=== PATIENT | male | born 1955 | race Caucasian/White ===

== ENCOUNTER → 2020-04-06 10:59 | Outpatient (CLI) | payer BC, SELFPAY ==
--- NOTE | 2020-04-06 11:06 | RAD_ITS ---
STUDY: X-RAY - ABDOMEN/PELVIS REASON FOR EXAM: Male, 65 years old. Abdominal pain TECHNIQUE: Single AP view of the abdomen / pelvis. COMPARISON: None. FINDINGS: Normal visualized lung bases. There is an unremarkable bowel gas pattern. The visualized liver, spleen and kidneys are grossly normal in size and morphology. Normal soft tissue structures. Normal visualized osseous structures. RAD/Abdomen Single View IMPRESSION: Normal x-ray examination of the abdomen and pelvis. Electronically Signed: Dipesh Thomas MD at 17:19 EST Tel , Service support ,
== END ==
PROVIDERS: PCP Family Medicine; Visit Provider Urology
DX: N20.1 Calculus of ureter (principal)
CPT/HCPCS: 74018

== ENCOUNTER 2020-04-09 12:29 | Day surgery (SDC) | payer BC, SELFPAY ==
[2020-04-09 13:03] VITALS: BP 144/91; PULSE 57; RESP 16; TEMP 36.6; O2SAT 97; BMI 27.3
[2020-04-09] MEDS: Lactated Ringers 1,000 ML 100 ML IV ×2 (13:24→16:00)
--- NOTE | 2020-04-09 14:04 | PCM.HP.STD ---
Problem List (1) Calculus of proximal left ureter Status: Acute History of Present Illness Date of Admission: 04/09/20 Chief Complaint: Left proximal ureteral calculi The patient is a 65 year old male who I saw in the office who had a kidney stone in the proximal left ureter KUB confirms a stone today working to proceed with left extracorporeal shockwave lithotripsy and possibly place a stent if necessary. Past Medical History Allergies No Known Allergies Allergy (Verified 04/07/20 10:41) Home Medications: Ambulatory Orders Medication Instructions Recorded Ibuprofen [Advil] 600 mg PO DAILY PRN PRN 09/16/14 Multivitamins,Therapeutic 1 tablet PO DAILY 09/16/14 [Multivitamin] Docusate Sodium [Colace] 100 mg PO BID PRN PRN #10 capsule 11/24/14 Hydrocodone/Acetaminophen 1 ea PO PRN PRN 04/07/20 [Hydrocodon-Acetaminophen 5-325] Methotrexate [Xatmep] 25 mg PO .QWEEK 04/07/20 Pantoprazole Sodium [Protonix] 40 mg PO DAILY 04/07/20 Flomax 0.4 g PO DAILY 04/09/20 Surgical History: - - Partial colectomy, hernia repair with mesh to the mid abdomen Smoking Status: Former smoker Tobacco Use: Non-smoker Review of Systems Constitutional: Denies: Chills, Fever, Weight Change HEENT: Denies: Head Aches, Sinus Congestion, Sinus Drainage Cardiovascular: Denies: Chest Pain, Palpitations Respiratory: Denies: Cough, Shortness of breath at rest, Sputum production Gastrointestinal: Denies: Abdominal Pain, Nausea, Vomiting Genitourinary: Denies: Dysuria Musculoskeletal: Denies: Joint Pain, Joint Tenderness Skin: Denies: Rash, Wounds Neurological: Denies: Numbness, Tingling, Focal weakness Psychiatric: Denies: Anxiety, Depression, Homicidal Ideations, Suicidal Ideations Hematologic/ Lymphatic: Denies: Easy Bruising, Easy Bleeding VTE Information - Inpt Only VTE Present on Admission: No VTE Mechan Device Prophylaxis: SCD's - Physical Exam Vitals/I&O's: Vital Signs Temp Pulse Resp BP Pulse Ox 98 F 57 L 16 144/91 H 97 04/09/20 13:03 04/09/20 13:03 04/09/20 13:03 04/09/20 13:03 04/09/20 13:03 Oxygen Delivery Method Room Air Weight: 81.6 kg Body Mass Index (BMI) 27.3 General: Alert, Oriented x3, Cooperative HEENT: Atraumatic, PERRLA, EOMI, Normocephalic Neck: Supple, No JVD, Negative Carotid Bruits Lungs: Clear to auscultation, Normal air movement Cardiovascular: Regular rate, No murmurs Abdomen: Bowel Sounds Present, Soft, Non Tender Extremities: No edema, Capillary Refill Less than 3 Seconds Skin: No rashes, No breakdown Musculoskeletal: No Tenderness to Palpation of Joints or Extremities Neurological: Cranial nerves II-XII grossly intact Psych/Mental Status: Normal Affect, Appropriate Microbiology Past 72 Hours 04/08/20 14:00 Interface Orders SARS-CoV-2 Antigen (Rapid) - Final Current Medications Cefazolin Sodium 2 gm/ Sodium (Chloride) 110 mls @ 150 mls/hr IV PREOP ONE Stop: 04/09/20 16:58 Lactated Ringer's () 1,000 mls @ 100 mls/hr IV .Q10H TIFFANIE Last Admin: 04/09/20 13:24 Dose: 100 mls/hr Documented by: Assessment/Plan All Active Problems Calculus of proximal left ureter (Acute) 65-year-old male with a proximal left obstructing kidney stone plan to proceed with shockwave lithotripsy and possible stent on the left
--- NOTE | 2020-04-09 14:09 | DCINST_ITS ---
Discharge Diet: Light diet - advance as tolerated Discharge Activity: May not drive while taking narcotic pain medications. Suture Line Care: Avoid Pulling/Pushing, Avoid Pinching/Bending Instructions: Shock Wave Lithotripsy Allergies/Adverse Reactions: Allergies No Known Allergies Allergy (Verified 04/07/20 10:41) Medications to take at Discharge Ibuprofen [Advil] 600 mg PO DAILY PRN PRN 09/16/14 Multivitamins,Therapeutic [Multivitamin] 1 tablet PO DAILY 09/16/14 Docusate Sodium [Colace] 100 mg PO BID PRN PRN #10 capsule 11/24/14 Hydrocodone/Acetaminophen [Hydrocodon-Acetaminophen 5-325] 1 ea PO PRN PRN 04/07/20 Methotrexate [Xatmep] 25 mg PO .QWEEK 04/07/20 Pantoprazole Sodium [Protonix] 40 mg PO DAILY 04/07/20 Flomax 0.4 g PO DAILY 04/09/20 Primary Care Physician: Minh Francisco MD [Primary Care Provider] - Test Results: Test results from this visit will be discussed in further detail at your follow- up appointment, if applicable. Please Follow Up With: Damien Faria MD - [phone] When: in 2 weeks, please call to make an appointment.
[2020-04-09] MEDS: Cefazolin 2 GM in 0.9% Normal Saline 100 ML IV (14:52)
[2020-04-09 15:58] VITALS: BP 117/86; BP 144/91; PULSE 62; RESP 18; TEMP 35.9; O2SAT 95
[2020-04-09 16:00] VITALS: BP 122/74; BP 144/91; PULSE 58; RESP 18; O2SAT 95
[2020-04-09 16:15] VITALS: BP 112/78; BP 144/91; PULSE 59; RESP 18; TEMP 36.1; O2SAT 97
[2020-04-09 17:34] VITALS: BP 144/91; BP 158/90; PULSE 53; RESP 16; TEMP 35.9; O2SAT 98
--- NOTE | 2020-04-12 12:03 | PCM.OPRPT ---
Problem List (1) Calculus of proximal left ureter Status: Acute Report of Operation Date of Procedure: 04/09/20 Pre-Operative Diagnosis: left kidney stone in the ureter Post-Operative Diagnosis: same Surgery/Procedure Performed:: cystoscopy left stent placement and left extra for shockwave lithotripsy Description of Surgical Findings:: 65-year-old male presents to the hospital for treatment of a kidney stone, he underwent general anesthesia, we started off by treating the stone with shockwave lithotripsy. We majored stone was in the upper focal point of the lithotripter. During the treatment we monitor the stone fragmentation. When we were treating the stone then not breaking so decision was made a place a stent. He was placed in dorsal lithotomy positionin the penis and tussles are prepped and draped unusual store fashion, went to the bladder the 21 British rigid cysto with the scope, advanced a wire up the left ureter and over the wire I that the stent, six British by 26cm stent. Once stent was in good positionI pulled the wire and the stent: the kidney bladder good position. We then reposition the patient and continue treatment at the end of the 3000 shockwaves the stone in the appearing to break much better patient and aesthetic was reversed plan to see him next week with a KUB and stent removal. Type of Anesthesia:: General Drains: stent left side - Admit VTE Documentation VTE Present on Admission: No
== END 2020-04-09 17:39 | disposition home or self-care (01) ==
LOC: SDC 12:29 → AC 12:39
PROVIDERS: PCP Family Medicine; Referring Provider Urology; Visit Provider Urology
PROC: (CPT 50590; principal; 2020-04-09 14:55)
DX: M06.9 Rheumatoid arthritis, unspecified (principal); E78.00 Pure hypercholesterolemia, unspecified; K21.9 Gastro-esophageal reflux disease without esophagitis; Z79.1 Long term (current) use of non-steroidal anti-inflammatories (NSAID); Z79.899 Other long term (current) drug therapy; Z96.652 Presence of left artificial knee joint; Z87.891 Personal history of nicotine dependence
CPT/HCPCS: 00873; 50590; 52332; 87426; C9803; J7120; C1769; J2405

== ENCOUNTER → 2020-04-12 12:35 | Outpatient (CLI) | payer BC, SELFPAY ==
[2020-04-09 13:03] VITALS: BMI 27.3
--- NOTE | 2020-04-12 12:37 | RAD_ITS ---
STUDY: X-RAY - ABDOMEN/PELVIS REASON FOR EXAM: Male, 65 years old. LEFT SIDE KIDNEY STONE TECHNIQUE: Two AP supine views of the abdomen and pelvis. COMPARISON: None. FINDINGS: Normal visualized lung bases. Left ureteral stent in place showing normal orientation. There is an unremarkable bowel gas pattern. There is no demonstrated free abdominal air. The visualized liver, spleen and kidneys are grossly normal in size and morphology. Normal soft tissue structures. Normal visualized osseous structures. There is an overlying nephrolith of the left lower kidney pelvis. RAD/Abdomen Single View IMPRESSION: Left renal nephrolith with left ureteral stent in place. Electronically Signed: Janusz Wright DO at 23:20 EST , Service support ,
== END ==
PROVIDERS: PCP Family Medicine; Referring Provider Urology; Visit Provider Urology
DX: N20.0 Calculus of kidney (principal)
CPT/HCPCS: 74018

== ENCOUNTER → 2020-05-25 15:11 | Outpatient (CLI) | payer BC, SELFPAY ==
--- NOTE | 2020-05-25 15:30 | RAD_ITS ---
STUDY: X-RAY - ABDOMEN/PELVIS REASON FOR EXAM: Male, 65 years old. History of left-sided kidney stones in March. Postop. TECHNIQUE: Two AP supine views of the abdomen and pelvis. COMPARISON: Abdomen, 04/12/2020. FINDINGS: Normal visualized lung bases. There is an unremarkable bowel gas pattern. There is no demonstrated free abdominal air. The visualized liver, spleen and kidneys are grossly normal in size and morphology. Is absence of the left kidney ureteral calculus. Again seen are small calcifications overlying the lower pole of the left kidney. No other evidence of renal or ureteral calculi are seen. Stable phlebolith Normal visualized osseous structures. RAD/Abdomen Single View IMPRESSION: 1. Stable calcifications in the lower pole the left kidney. 2. Interval removal of a left ureteral stent. Electronically Signed: Dao Hurd DO at 23:23 EST Tel [phone], Service support ,
[2020-05-25 17:13] LABS: Anion Gap 5 (5-15); BUN 13 mg/dL (7-18); BUN/Creat Ratio 16.4 RATIO (10-20); Calcium,Total 8.4 mg/dL (8.5-10.1); Chloride 111 mmol/L (98-107); Creatinine, Serum 0.79 mg/dL (0.70-1.30); EST Glomerular Filtration Rate 104 mL/min (>60); Est Glom Filt Rate - Afr Amer 126 mL/min (>60); Glucose 76 mg/dL (74-106); Potassium 3.8 mmol/L (3.5-5.1); Sodium Level 142 mmol/L (136-145)
== END ==
PROVIDERS: PCP Family Medicine; Referring Provider Urology; Visit Provider Urology
DX: Z48.816 Encounter for surgical aftercare following surgery on the genitourinary system (principal)
CPT/HCPCS: 36415; 74018; 80048

== ENCOUNTER 2020-07-01 02:48 | Outpatient (RCR) | payer BC, SELFPAY ==
[2020-07-01] MEDS: COVID-19 VACC, MRNA(PFIZER)/PF 30 MCG/0.3 ML SYRINGE IM (17:11)
[2020-07-22] MEDS: COVID-19 VACC, MRNA(PFIZER)/PF 30 MCG/0.3 ML SYRINGE IM (16:19)
== END 2020-07-22 23:59 | disposition home or self-care (01) ==
LOC: IMMUN 02:48
PROVIDERS: PCP Family Medicine; Visit Provider Family Medicine
DX: Z23 Encounter for immunization (principal)
CPT/HCPCS: 0001A; 0002A; 91300

== ENCOUNTER 2021-02-22 02:51 | Emergency (ER) | payer BC, SELFPAY ==
[2021-02-22 02:52] VITALS: PULSE 56; RESP 20; TEMP 37; O2SAT 97; BMI 27.6
--- NOTE | 2021-02-22 02:55 | CT_ITS ---
STUDY: CT ABDOMEN AND PELVIS WITH CONTRAST REASON FOR EXAM: Male, 65 years old. diverticulitis RADIATION DOSAGE (If Supplied By Facility): CTDIvol = ( 36.94 ) mGy, DLP = ( 916.73 ) mGycm TECHNIQUE: Transaxial images were obtained from the dome of the diaphragm to the symphysis pubis without oral contrast. Isovue 370 100ml was administered. Sagittal and coronal images were reconstructed. Individualized dose optimization techniques were used for this CT. COMPARISON: None. FINDINGS: The visualized lung bases are unremarkable. The visualized portions of the heart are within normal limits. Normal liver. There are multiple gallstones. Normal spleen. Normal pancreas. Normal bilateral adrenal glands. Normal right kidney. There is 6 mm stone in the distal left ureter at the UVJ with resultant moderate left hydronephrosis. There is a stone in the lower pole calyx of the left kidney measures 7 mm. Normal visualized stomach. Normal small intestine. Partial right colectomy with ileocolic anastomosis. There is diffuse atherosclerotic calcification of the abdominal aorta, without a demonstrated aneurysm. Normal inferior vena cava. Normal retroperitoneum. Normal urinary bladder. Normal abdominal wall. Normal osseous structures. CT/Abdomen/Pelvis W IV Cont ONLY IMPRESSION: There is 6 mm stone in the distal left ureter at the UVJ with resultant moderate left hydronephrosis. Cholelithiasis. Electronically Signed: Brit Waters MD at 4:21 EDT Tel , Service support ,
--- NOTE | 2021-02-22 02:57 | EDS_ITS ---
HPI HPI - GI History of Present Illness Chief Complaint: Nausea/Vomiting/Diarrhea Narrative Narrative: Patient presenting for evaluation secondary to abdominal pain nausea vomiting and diarrhea. Patient reports that he had a sudden onset of symptoms at about midnight tonight. He reports that he has had multiple episodes of nonbloody nonbilious emesis and multiple episodes of loose watery diarrhea. He localizes pain in his left abdomen and left flank. He states that this continuous pain that is sharp does not really have any sort of exacerbating relieving qualities. Denies any urinary signs or symptoms. Patient does have a history of an abdominal surgery in the past where he had to have a partial bowel resection secondary to twisted bowel. He has since had a ostomy reversal. Patient denies any presence of fevers associated with this. Review of systems otherwise negative. [facility] Medical History (Updated 02/22/21 @ 04:[address] Luis Eduardo Byers MD) Rheumatoid arthritis Volvulus Home Medications methotrexate 25 mg PO .QWEEK 04/07/20 [History Last Taken Unknown] pantoprazole 40 mg PO DAILY 04/07/20 [History Last Taken Unknown] oxycodone-acetaminophen [Percocet] 1 tab PO Q6H PRN 3 Days #12 tab 02/22/21 [Rx Last Taken Unknown] Allergy/AdvReac Type Severity Reaction Status Date / Time No Known Allergies Allergy Verified 04/07/20 10:41 Surgical History (Updated 02/22/21 @ 02:58 by Dona Will) History of colon resection Social History Smoking Status: Former smoker ROS ROS ED Constitutional Constitutional ED: Denies chills or fever(s) ENT ENT ED: Denies sore throat Cardiovascular Cardiovascular: Denies chest pain Respiratory/Chest Respiratory/Chest: Denies cough or dyspnea Gastrointestinal Gastrointestinal: Reports abdominal pain, diarrhea, nausea and vomiting Genitourinary Genitourinary ED: Denies dysuria, hematuria or urinary frequency Musculoskeletal Musculoskeletal: Denies myalgias Integumentary Denies rash Neurologic Neurologic: Denies paresthesias or weakness Psychiatric Psychiatric: Denies depression Endocrine Endocrinology: Denies polyuria Hematologic/Lymphatic Hematologic/Lymphatic: Denies easy bleeding or easy bruising Allergic/Immunologic Allergic/Immunologic ED: Denies urticaria EXAM Physical Exam Const Vital Signs: 02/22/21 02:52 02/22/21 03:15 Temperature 98.6 F 98.6 F Temperature Source Temporal Temporal Pulse Rate 56 L 56 L Respiratory Rate 20 H 20 H Blood Pressure 180/97 H Blood Pressure Mean 124 Pulse Ox 97 97 Oxygen Delivery Method Room Air Room Air Positive well nourished and well developed Constitutional Narrative: Patient is not acutely distressed but visibly in pain General Appearance ED: well developed and NAD HEENT normocephalic and atraumatic Eyes EOMs intact bilaterally General Eye ED: Negative for pale conjunctiva or scleral icterus Neck no lymphadenopathy and supple Resp normal respiratory effort and clear to auscultation bilaterally Cardio regular rate, regular rhythm, no murmurs and peripheral pulses 2+ throughout GI GI Narrative: Patient's abdomen is nondistended. Well-healed surgical scars are noted. There is tenderness noted in the left lower quadrants, no guarding or rebound. There is some left CVA tenderness to percussion noted. Palpation: Negative for guarding, rigid or rebound tenderness present Back/Spine no CVA tenderness Extremity full ROM Extremity Narrative: Bilaterally symmetric DP pulses General Extremety ED: Negative for edema General Extremity: Negative for edema Neuro moves all extremities and no sensory deficits noted Sensorium / Orientation: alert, oriented to person, oriented to place and oriented to time Motor Exam: strength 5/5 throughout Psych mental status grossly normal Skin Rashes: no rashes MDM MDM MDM Narrative Medical decision making narrative: Patient presented for evaluation secondary to abdominal pain flank pain. IV was established laboratory studies were obtained. Patient was given morphine Zofran and fluids. CBC demonstrates a leukocytosis of 12.5 with somewhat of a neutrophilic shift. Chemistry shows normal renal function no significant electrolyte abnormalities lactic acid was obtained se condary to the patient reporting a history of volvulus this was found to be negative. Patient continued to have pain, he was given a subsequent dose of Dilaudid in the emergency department. CT abdomen and pelvis demonstrated a 6 mm stone in the patient's left distal ureter with resultant hydronephrosis. At that point we ordered a urinalysis on the patient. Patient was able to provide us a urine sample, and ultimately actually passed his kidney stone in the specimen jar. Patient had improvement of his pain. There is no evidence of urinary tract infection. Urolith will be sent for pathology evaluation. Patient be sent with a course of Percocet for treatment of pain. Patient was recommended to follow-up with urology. Patient was discharged in improved condition. Lab Data Labs: Laboratory Results - last 24 hr 02/22/21 02/22/21 02/22/21 03:03 03:03 03:03 WBC 12.5 H RBC 4.96 Hgb 15.1 Hct 44.4 MCV 89.5 MCH 30.4 MCHC 34.0 RDW Std Deviation 45.4 H RDW Coeff of Fabian 13.8 Plt Count 224 MPV 10.1 Immature Gran % (Auto) 0.300 Neut % (Auto) 83.5 H Lymph % (Auto) 10.2 L [place] % (Auto) 4.7 Eos % (Auto) 0.8 Baso % (Auto) 0.5 Absolute Neuts (auto) 10.5 H Absolute Lymphs (auto) 1.28 Nucleated RBC % 0 Sodium 142 Potassium 4.2 Chloride 106 Carbon Dioxide 28.0 Anion Gap 8 BUN 19 H Creatinine 1.00 Estim Creat Clear Calc 68.85 Est GFR (MDRD) Af Amer 96 Est GFR (MDRD) Non-Af 80 BUN/Creatinine Ratio 19.0 Glucose 135 H Lactic Acid 0.7 Calcium 8.7 Total Bilirubin 0.40 AST 25 ALT 30 Alkaline Phosphatase 80 Total Protein 6.7 Albumin 3.6 Globulin 3.1 Albumin/Globulin Ratio 1.2 Lipase 120 Urine Color Urine Clarity Urine pH Ur Specific [place]ner Urine Protein Urine Glucose (UA) Urine Ketones Urine Occult Blood Urine Nitrite Urine Bilirubin Urine Urobilinogen Ur Leukocyte Esterase Urine RBC Urine WBC Ur Squamous Epith Cells Urine Bacteria Urine Mucus 02/22/21 04:00 WBC RBC Hgb Hct MCV MCH MCHC RDW Std Deviation RDW Coeff of Fabian Plt Count MPV Immature Gran % (Auto) Neut % (Auto) Lymph % (Auto) [place] % (Auto) Eos % (Auto) Baso % (Auto) Absolute Neuts (auto) Absolute Lymphs (auto) Nucleated RBC % Sodium Potassium Chloride Carbon Dioxide Anion Gap BUN Creatinine Estim Creat Clear Calc Est GFR (MDRD) Af Amer Est GFR (MDRD) Non-Af BUN/Creatinine Ratio Glucose Lactic Acid Calcium Total Bilirubin AST ALT Alkaline Phosphatase Total Protein Albumin Globulin Albumin/Globulin Ratio Lipase Urine Color Yellow Urine Clarity Clear Urine pH 6.5 Ur Specific [place]ner 1.010 Urine Protein Negative Urine Glucose (UA) Normal Urine Ketones Negative Urine Occult Blood 150 H Urine Nitrite Negative Urine Bilirubin Negative Urine Urobilinogen Normal Ur Leukocyte Esterase Negative Urine RBC 10-25 SEEN Urine WBC 0 SEEN Ur Squamous Epith Cells 0 SEEN Urine Bacteria RARE Urine Mucus 0 SEEN Radiography Diagnostic Testing: Clinical Impression(s) from Imaging Studies Abdomen/Pelvis CT 02/22/21 02:55 IMPRESSION: There is 6 mm stone in the distal left ureter at the UVJ with resultant moderate left hydronephrosis. Cholelithiasis. Electronically Signed: Brit Waters MD at 4:21 EDT Tel , Service support , Discharge Plan Triage Chief Complaint: Nausea/Vomiting/Diarrhea ED Provider: Luis Eduardo Byers Dx/Rx/DC Orders Clinical Impression: Urolithiasis Instructions: ED Kidney Stone w/ Colic Prescriptions: New oxycodone-acetaminophen [Percocet] 5-325 mg tablet 1 tab PO Q6H PRN (Reason: pain) 3 Days Qty: 12 RF: 0 No Action pantoprazole 40 MG tablet 40 mg PO DAILY RF: 0 methotrexate 2.5 MG/ML solution 25 mg PO .QWEEK RF: 0 Primary Care Provider: Minh Francisco Referrals: Minh Francisco MD [Primary Care Provider] - Damien Faria MD [STAFF PHYSICIAN] - 1-2 Weeks Disposition Disposition: Home, Self Care
[2021-02-22] MEDS: Ondansetron 4 MG/2 ML Vial IV (03:05)
[2021-02-22] MEDS: 0.9% Normal Saline 1,000 ML 1000 ML IV (03:05)
[2021-02-22] MEDS: Morphine 4 MG/ML Syringe IV (03:06)
[2021-02-22 03:10] LABS: Absolute Lymphocyte Count 1.28 X10^3/uL (0.83-4.51); Absolute Neutrophil Count 10.5 X10^3/uL (2.0-7.7); Basophil# 0.06 X10^3/uL; Basophil% 0.5 % (0-1); Eosinophils% 0.8 % (0-5); Hematocrit 44.4 % (40-54); Hemoglobin 15.1 g/dL (13.0-16.5); Lymphocyte # 1.28 X10^3/ul (0.83-4.51); Lymphocyte % 10.2 % (19-41); Mean Corpuscular Hgb 30.4 pg (27.0-32.0); Mean Corpuscular Volume 89.5 fL (80-94); Mean Platelet Vol. 10.1 fl (6.2-12.0); Monocyte# 0.59 X10^3/uL; Monocyte% 4.7 % (0-10); NRBC Flagged by Analyzer 0 % (0-5); Neutrophil # 10.46 X10^3/uL (2.7-7.7); Neutrophil % 83.5 % (47-70); Platelet Count 224 K/mm3 (150-450); RBC Distribution Width CV 13.8 % (11.6-14.6); RBC Distribution Width SD 45.4 fl (35.1-43.9); Red Blood Count 4.96 M/mm3 (4.6-6.2); White Blood Count 12.5 K/mm3 (4.4-11.0)
[2021-02-22 03:15] VITALS: BP 180/97; PULSE 56; RESP 20; TEMP 37; O2SAT 97
[2021-02-22 03:29] LABS: ALB/GLOB Ratio 1.2 RATIO (0.9-2.4); AST(SGOT) 25 U/L (15-37); Alanine Aminotransfer ALT/SGPT 30 U/L (16-61); Albumin, Serum 3.6 g/dL (3.2-5.0); Alkaline Phosphatase 80 U/L (45-117); Anion Gap 8 (5-15); BUN 19 mg/dL (7-18); Calcium,Total 8.7 mg/dL (8.5-10.1); Chloride 106 mmol/L (98-107); EST Glomerular Filtration Rate 80 mL/min (>60); Est Glom Filt Rate - Afr Amer 96 mL/min (>60); Estimated Creatinine Clearance 68.85 ml/min; Globulin 3.1 g/dL (2.2-4.2); Glucose 135 mg/dL (74-106); Lipase 120 U/L (73-393); Potassium 4.2 mmol/L (3.5-5.1); Protein, Total 6.7 g/dL (6.4-8.2); Sodium Level 142 mmol/L (136-145)
[2021-02-22 03:40] LABS: Lactic Acid 0.7 mmol/L (0.4-1.9)
[2021-02-22] MEDS: HYDROmorphone 0.5 MG/0.5 ML SYRINGE IV (03:55)
[2021-02-22 04:02] LABS: Mucous, Urine 0 SEEN /hpf (<or=2+); Squamous Epithelial Cells - UA 0 SEEN /hpf (0-5); White Blood Cells 0 SEEN /hpf (0-5)
[2021-02-22 04:07] LABS: Color, Urine Yellow (Yellow); Glucose, Dipstick Normal (Normal); Ketone-Dipstick Negative (Negative); Leukocyte Esterase-Dipstick Negative /ul (Negative); Nitrite-Dipstick Negative (Negative); Occult Blood-Urine 150 /ul (Negative); Protein-Dipstick Negative (Negative); Urine Bilirubin Dipstick Negative (Negative); Urine Clarity Clear (Clear); Urine Urobilinogen Normal (Normal); Urine pH 6.5 (5.0 - 8.0)
[2021-02-22 04:14] LABS: Bacteria RARE /hpf (None Seen); Red Blood Cells-Urine 10-25 SEEN /hpf (0-5)
[2021-02-22 04:57] VITALS: BP 164/75; PULSE 78; RESP 16
[2021-03-02 15:25] LABS: Source KIDNEY
== END 2021-02-22 04:57 | disposition home or self-care (01) ==
PROVIDERS: Emergency Provider Emergency Medicine; PCP Family Medicine
DX: N13.2 Hydronephrosis with renal and ureteral calculous obstruction (principal); M06.9 Rheumatoid arthritis, unspecified; Z79.899 Other long term (current) drug therapy; Z87.891 Personal history of nicotine dependence
CPT/HCPCS: 74177; 80053; 81001; 82360; 83605; 83690; 85025; 96361; 96374; 96375; 99283; J7030; Q9967; A4216; J2405